=== PATIENT | female | born 1950 | race Caucasian/White ===

== ENCOUNTER 2018-05-16 10:23 | Emergency (ER) | payer OTHER ==
[~2018-05-16] VITALS: Ht 154.9 cm; Wt 71.2 kg
[2018-05-16 10:39] VITALS: BP 153/80
[2018-05-16] MEDS ORDERED: KETOROLAC TROMETH 60MG/2ML VIAL IM ONE (11:30)
== END 2018-05-16 12:02 | disposition home or self-care (01) ==
LOC: ER 10:23
DX: M47.896 Other spondylosis, lumbar region (principal); M54.16 Radiculopathy, lumbar region; I10 Essential (primary) hypertension
CPT/HCPCS: 72100; 96372; 99284; J1885

== ENCOUNTER 2019-08-04 14:48 | Emergency (ER) | payer OTHER ==
[~2019-08-04] VITALS: Ht 157.5 cm; Wt 68.0 kg
[2019-08-04 15:19] VITALS: BP 120/69
== END 2019-08-04 16:05 | disposition home or self-care (01) ==
LOC: ER 14:54
DX: S39.011A Strain of muscle, fascia and tendon of abdomen, initial encounter (principal); I10 Essential (primary) hypertension; F17.210 Nicotine dependence, cigarettes, uncomplicated; X58.XXXA Exposure to other specified factors, initial encounter; Y93.89 Activity, other specified; Y92.89 Other specified places as the place of occurrence of the external cause; Y99.8 Other external cause status

== ENCOUNTER 2022-08-08 06:02 | Emergency (ER) | payer OTHER ==
[~2022-08-08] VITALS: Ht 157.5 cm; Wt 56.0 kg
[2022-08-08 06:59] LABS: Basophils # (auto) 0 10 ^3/uL (0-0.2); Basophils % (auto) 0.7 % (0.0-2.0); Eosinophils # (auto) 0.2 10 ^3/uL (0-0.8); Eosinophils % (auto) 3.3 % (0.0-7.0); Hematocrit 39.3 % (36.0-46.0); Hemoglobin 13.2 g/dL (12.2-16.2); Lymphocytes # (auto) 1.4 10 ^3/uL (0.4-5.4); Lymphocytes % (auto) 21.6 % (10.0-50.0); Mean Corpuscular Hemoglobin 30.9 pg (28.0-32.0); Mean Corpuscular Hgb Conc. 33.7 g/dL (32.0-36.0); Mean Corpuscular Volume 91.7 fL (80.0-100.0); Monocytes # (auto) 0.5 10 ^3/uL (0-1.3); Neutrophils # (auto) 4.3 10 ^3/uL (1.6-8.6); Neutrophils % (auto) 66.4 % (37.0-80.0); Nucleated Red Blood Cells % 0.1 %; Red Blood Cells 4.28 10^6/uL (4.0-5.20); Red Cell Distribution Width 13.5 % (11.8-14.3); White Blood Cell 6.5 10^3/uL (4.4-10.8)
[2022-08-08 07:08] LABS: Albumin 3.8 g/dL (3.4-5.0); BUN/Creatinine Ratio 31.5; Calcium 9.3 mg/dL (8.5-10.1)
[2022-08-08 07:11] LABS: Bilirubin, Total 0.7 mg/dL (0.2-1.0); Total Protein 7.6 g/dL (6.4-8.2)
[2022-08-08] MEDS ORDERED: FAMOTIDINE 20 MG TAB PO ONE (07:15)
[2022-08-08] MEDS ORDERED: ALUM & MAG HYDROX-SIMETH LIQ(MAALOX) 30 ML PO ONE (07:15)
[2022-08-08] MEDS ORDERED: SODIUM CHLORIDE 0.9% 1,000 ML IV ONE (07:15)
[2022-08-08] MEDS ORDERED: IOHEXOL 350 MG/ML 100ML IJ ONE (08:04)
[2022-08-08 11:16] LABS: Urine Bacteria NONE SEEN /hpf (None Seen); Urine Blood Negative /uL (Negative); Urine WBC 1 /hpf (0 - 5)
[2022-08-08 12:37] LABS: Urine Specific Gravity > 1.050 (1.001-1.035)
[2022-08-08] MEDS ORDERED: ALUMCHW6 PO (12:57)
[2022-08-08] MEDS ORDERED: CLON0.5T PO (12:57)
[2022-08-08 13:17] VITALS: BP 122/51
== END 2022-08-08 13:18 | disposition home or self-care (01) ==
LOC: ER 06:02
DX: R10.13 Epigastric pain (principal); F41.8 Other specified anxiety disorders; K21.9 Gastro-esophageal reflux disease without esophagitis; I10 Essential (primary) hypertension; F17.210 Nicotine dependence, cigarettes, uncomplicated; Z90.89 Acquired absence of other organs
CPT/HCPCS: 36415; 71046; 74177; 80053; 81001; 83690; 83735; 85025; 93005; 96360; 96361; 99285; J7030; Q9967

== ENCOUNTER 2022-09-20 17:10 | Emergency (ER) | payer OTHER ==
[~2022-09-20] VITALS: Ht 154.9 cm; Wt 62.6 kg
[~2022-09-20 17:10] MED LIST: ALUMCHW6 PO; CLON0.5T PO
[2022-09-20] MEDS ORDERED: CEPH-510 PO (18:39)
[2022-09-20] MEDS ORDERED: TETANUS-DIPTH-ACEL PERTUSSIS 0.5ML SYR Tdap IM ONE (18:45)
[2022-09-20 18:46] VITALS: BP 146/83
== END 2022-09-20 18:50 | disposition home or self-care (01) ==
LOC: ER 17:10
DX: L03.012 Cellulitis of left finger (principal); K21.9 Gastro-esophageal reflux disease without esophagitis; I10 Essential (primary) hypertension; F17.200 Nicotine dependence, unspecified, uncomplicated; Z90.89 Acquired absence of other organs
CPT/HCPCS: 10060; 90471; 90715

== ENCOUNTER → 2022-10-15 | Outpatient (CLI) | payer OTHER ==
[~2022-10-15] MED LIST changes: +CEPH-510 PO
== END | disposition home or self-care (01) ==
LOC: LAB 11:56
PROVIDERS: ATTEND Nurse Practitioner Family
DX: E05.90 Thyrotoxicosis, unspecified without thyrotoxic crisis or storm (principal)
CPT/HCPCS: 36415; 84439; 84443

== ENCOUNTER 2022-11-19 09:09 | Emergency (ER) | payer OTHER ==
[~2022-11-19] VITALS: Ht 154.9 cm; Wt 61.2 kg
[2022-11-19] MEDS ORDERED: methylPREDNISolone SOD SUCC 125 MG/2 ML VL IM ONE (11:15)
[2022-11-19] MEDS ORDERED: ACETAMINOPHEN 500 MG TAB PO ONE (11:15)
[2022-11-19] MEDS ORDERED: MORPHINE SULFATE INJ 2 MG/ml SYRG IM ONE (12:00)
[2022-11-19] MEDS ORDERED: ONDANSETRON ODT 4 MG TAB PO ONE ×2 (12:00→13:00)
[2022-11-19 12:12] VITALS: BP 143/75
[2022-11-19] MEDS ORDERED: CYCL-837 PO (13:43)
[2022-11-19] MEDS ORDERED: LIDO5DIS21 TOP (13:43)
[2022-11-19] MEDS ORDERED: ONDA-144 PO (14:40)
== END 2022-11-19 13:44 | disposition home or self-care (01) ==
LOC: ER 09:09
DX: M54.31 Sciatica, right side (principal); I10 Essential (primary) hypertension; F17.210 Nicotine dependence, cigarettes, uncomplicated; Z90.89 Acquired absence of other organs
CPT/HCPCS: 72100; 96372; 99284; J2270; J2930; Q0162

== ENCOUNTER → 2022-11-21 | Outpatient (CLI) | payer OTHER ==
[~2022-11-21] MED LIST changes: +CYCL-837 PO; +LIDO5DIS21 TOP; +ONDA-144 PO
[2022-11-21 11:52] LABS: Basophils # (auto) 0 10 ^3/uL (0-0.2); Basophils % (auto) 0.4 % (0.0-2.0); Eosinophils # (auto) 0.2 10 ^3/uL (0-0.8); Hematocrit 38.9 % (36.0-46.0); Lymphocytes % (auto) 25.9 % (10.0-50.0); Mean Corpuscular Hemoglobin 31.1 pg (28.0-32.0); Mean Corpuscular Hgb Conc. 33.4 g/dL (32.0-36.0); Mean Corpuscular Volume 93.1 fL (80.0-100.0); Monocytes # (auto) 0.5 10 ^3/uL (0-1.3); Monocytes % (auto) 6.3 % (0.0-12.0); Neutrophils # (auto) 5.2 10 ^3/uL (1.6-8.6); Neutrophils % (auto) 65.4 % (37.0-80.0); Red Blood Cells 4.18 10^6/uL (4.0-5.20); White Blood Cell 7.9 10^3/uL (4.4-10.8)
[2022-11-21 12:39] LABS: Calcium 8.5 mg/dL (8.5-10.1)
[2022-11-21 12:42] LABS: BUN/Creatinine Ratio 38.4; Bilirubin, Total 0.6 mg/dL (0.2-1.0); Total Protein 7.4 g/dL (6.4-8.2)
[2022-11-21 13:34] LABS: Potassium 4.2 mmol/L (3.5-5.1)
== END | disposition home or self-care (01) ==
LOC: LAB 11:24
PROVIDERS: ATTEND Nurse Practitioner Family
DX: F41.9 Anxiety disorder, unspecified (principal); E03.9 Hypothyroidism, unspecified
CPT/HCPCS: 36415; 80053; 84439; 84443; 85025

== ENCOUNTER → 2023-01-10 | Outpatient (CLI) | payer OTHER ==
[2023-01-10 10:57] LABS: Basophils # (auto) 0 10 ^3/uL (0-0.2); Basophils % (auto) 0.8 % (0.0-2.0); Eosinophils # (auto) 0.2 10 ^3/uL (0-0.8); Hematocrit 40.2 % (36.0-46.0); Hemoglobin 13.6 g/dL (12.2-16.2); Lymphocytes # (auto) 1.6 10 ^3/uL (0.4-5.4); Lymphocytes % (auto) 28.1 % (10.0-50.0); Mean Corpuscular Hemoglobin 31.1 pg (28.0-32.0); Mean Corpuscular Hgb Conc. 33.7 g/dL (32.0-36.0); Mean Corpuscular Volume 92.3 fL (80.0-100.0); Monocytes # (auto) 0.4 10 ^3/uL (0-1.3); Monocytes % (auto) 6.5 % (0.0-12.0); Neutrophils # (auto) 3.4 10 ^3/uL (1.6-8.6); Neutrophils % (auto) 61.6 % (37.0-80.0); Red Blood Cells 4.36 10^6/uL (4.0-5.20); Red Cell Distribution Width 13.6 % (11.8-14.3); White Blood Cell 5.6 10^3/uL (4.4-10.8)
[2023-01-10 11:38] LABS: Potassium 3.7 mmol/L (3.5-5.1)
[2023-01-10 12:15] LABS: Albumin 3.7 g/dL (3.4-5.0); BUN/Creatinine Ratio 27.6 (10.0-20.0); Bilirubin, Total 0.9 mg/dL (0.2-1.0); CRP High Sensitivity 0.03 mg/dL (< 0.3); Calcium 8.9 mg/dL (8.5-10.1); Total Protein 7.4 g/dL (6.4-8.2)
== END | disposition home or self-care (01) ==
LOC: LAB 10:32
PROVIDERS: ATTEND Internal Medicine Rheumatology
DX: M79.7 Fibromyalgia (principal); M06.9 Rheumatoid arthritis, unspecified
CPT/HCPCS: 36415; 80053; 85025; 85652; 86141; 86200; 86431

== ENCOUNTER → 2023-03-18 | Outpatient (CLI) | payer OTHER ==
[~2023-03-18] MED LIST changes: +CLON-1003 PO; -CLON0.5T PO
[2023-03-18 14:14] LABS: Basophils # (auto) 0 10 ^3/uL (0-0.2); Basophils % (auto) 0.7 % (0.0-2.0); Eosinophils # (auto) 0.2 10 ^3/uL (0-0.8); Eosinophils % (auto) 3.1 % (0.0-7.0); Hematocrit 41.6 % (36.0-46.0); Hemoglobin 13.9 g/dL (12.2-16.2); Lymphocytes # (auto) 1.1 10 ^3/uL (0.4-5.4); Lymphocytes % (auto) 17.7 % (10.0-50.0); Mean Corpuscular Hemoglobin 31.7 pg (28.0-32.0); Mean Corpuscular Hgb Conc. 33.4 g/dL (32.0-36.0); Mean Corpuscular Volume 94.9 fL (80.0-100.0); Monocytes # (auto) 0.5 10 ^3/uL (0-1.3); Monocytes % (auto) 7.8 % (0.0-12.0); Neutrophils # (auto) 4.5 10 ^3/uL (1.6-8.6); Neutrophils % (auto) 70.7 % (37.0-80.0); Nucleated Red Blood Cells % 0.1 %; Red Blood Cells 4.39 10^6/uL (4.0-5.20); Red Cell Distribution Width 13.4 % (11.8-14.3); White Blood Cell 6.4 10^3/uL (4.4-10.8)
[2023-03-18 14:46] LABS: Urine Bacteria NONE SEEN /hpf (None Seen); Urine Blood Negative /uL (Negative); Urine Mucus FEW (None Seen); Urine Specific Gravity 1.026 (1.001-1.035); Urine WBC 2 /hpf (0 - 5)
[2023-03-18 14:47] LABS: Albumin 3.9 g/dL (3.4-5.0); BUN/Creatinine Ratio 25.3 (10.0-20.0); Calcium 8.7 mg/dL (8.5-10.1)
[2023-03-18 14:51] LABS: Potassium 4.4 mmol/L (3.5-5.1); Total Protein 7.3 g/dL (6.4-8.2)
== END | disposition home or self-care (01) ==
LOC: LAB 13:55
DX: R10.13 Epigastric pain (principal); R11.0 Nausea
CPT/HCPCS: 36415; 80053; 81001; 82150; 83690; 85025

== ENCOUNTER 2023-07-25 16:45 | Emergency (ER) | payer OTHER ==
[~2023-07-25] VITALS: Ht 154.9 cm; Wt 56.1 kg
[2023-07-25 18:09] LABS: Urine Bacteria NONE SEEN /hpf (None Seen); Urine Blood Negative /uL (Negative); Urine Clarity Clear (Clear); Urine Color Yellow (Yellow); Urine Mucus FEW (None Seen); Urine Protein, UAD Negative (Negative); Urine Specific Gravity 1.019 (1.001-1.035); Urine Urobilinogen Normal (Negative); Urine WBC 1 /hpf (0 - 5)
[2023-07-25] MEDS ORDERED: ACE3T PO (18:36)
[2023-07-25 18:44] VITALS: BP 109/71; PULSE 65; RESP 18; TEMP 98.5; O2SAT 97
== END 2023-07-25 18:46 | disposition home or self-care (01) ==
LOC: ER 16:45
DX: K40.90 Unilateral inguinal hernia, without obstruction or gangrene, not specified as recurrent (principal); K21.9 Gastro-esophageal reflux disease without esophagitis; I10 Essential (primary) hypertension; F17.210 Nicotine dependence, cigarettes, uncomplicated
CPT/HCPCS: 81001

== ENCOUNTER → 2023-09-19 | Outpatient (CLI) | payer OTHER ==
[~2023-09-19] MED LIST changes: +ACE3T PO
== END | disposition home or self-care (01) ==
LOC: XYW 13:08
PROVIDERS: ATTEND Student in an Organized Health Care Education/Training Program
DX: Z01.810 Encounter for preprocedural cardiovascular examination (principal); I11.9 Hypertensive heart disease without heart failure
CPT/HCPCS: 93306

== ENCOUNTER → 2023-10-23 | Outpatient (CLI) | payer OTHER ==
[2023-10-23 11:55] LABS: Urine Epithelial Cast None Seen /hpf (<5)
[2023-10-23 12:43] LABS: Erythrocyte Sedimentation Rate 2 mm/hr (0-20)
[2023-10-23 12:45] LABS: Urine Bacteria NONE SEEN /hpf (None Seen); Urine Blood Negative /uL (Negative); Urine Clarity Clear (Clear); Urine Color Yellow (Yellow); Urine Mucus FEW (None Seen); Urine Protein, UAD TRACE (Negative); Urine Specific Gravity 1.034 (1.001-1.035); Urine Urobilinogen Normal (Negative); Urine WBC 2 /hpf (0 - 5)
[2023-10-23 12:49] LABS: Triglycerides 65 mg/dL (< 150)
[2023-10-23 12:50] LABS: Cholesterol 195 mg/dL (< 200); LDL Cholesterol 102 mg/dL (< 100)
[2023-10-23 12:51] LABS: HDL Cholesterol 74 mg/dL (40-59)
== END | disposition home or self-care (01) ==
LOC: LAB 11:45
PROVIDERS: ATTEND Internal Medicine
DX: I10 Essential (primary) hypertension (principal); E78.5 Hyperlipidemia, unspecified; F41.9 Anxiety disorder, unspecified; M79.7 Fibromyalgia
CPT/HCPCS: 36415; 80061; 81001; 82306; 82607; 84443; 85652

== ENCOUNTER → 2023-10-23 | Outpatient (CLI) | payer OTHER ==
[~2023-10-23] VITALS: Ht 157.5 cm; Wt 55.3 kg
[~2023-10-23] MED LIST changes: +ATROPINE SULF 0.5 MG/5ML SYR ONE; +DOBUTamine 1000MCG/ML 100 ML IV ONE; +DOBUTamine 1000MCG/ML 250 ML IV ONE
[2023-10-23 11:21] VITALS: BP 117/58; PULSE 64
== END | disposition home or self-care (01) ==
LOC: XYW 09:35
PROVIDERS: ATTEND Student in an Organized Health Care Education/Training Program
DX: Z01.810 Encounter for preprocedural cardiovascular examination (principal); R68.89 Other general symptoms and signs; E78.5 Hyperlipidemia, unspecified; K40.90 Unilateral inguinal hernia, without obstruction or gangrene, not specified as recurrent; K57.90 Diverticulosis of intestine, part unspecified, without perforation or abscess without bleeding; F17.200 Nicotine dependence, unspecified, uncomplicated
CPT/HCPCS: 93017; 93350; J1250; J0461

== ENCOUNTER 2023-11-08 12:55 | Inpatient (IN) | payer OTHER ==
[~2023-11-08] VITALS: Ht 160 cm; Wt 64.5 kg
[~2023-11-08 12:55] MED LIST changes: -ATROPINE SULF 0.5 MG/5ML SYR ONE; -DOBUTamine 1000MCG/ML 100 ML IV ONE; -DOBUTamine 1000MCG/ML 250 ML IV ONE
[2023-11-08 13:31] VITALS: PULSE 57; RESP 16; O2SAT 97
[2023-11-08] MEDS: MORPHINE SULFATE 4 MG/ML SYR/VIAL IV ONE (13:39)
[2023-11-08] MEDS: ONDANSETRON HCL 4 MG/2 ML VIAL IV ONE (13:39)
[2023-11-08 13:52] LABS: Basophils # (auto) 0 10 ^3/uL (0-0.2); Basophils % (auto) 0.4 % (0.0-2.0); Eosinophils # (auto) 0.2 10 ^3/uL (0-0.8); Eosinophils % (auto) 2.1 % (0.0-7.0); Hematocrit 37.4 % (36.0-46.0); Hemoglobin 12.7 g/dL (12.2-16.2); Lymphocytes # (auto) 0.8 10 ^3/uL (0.4-5.4); Lymphocytes % (auto) 9.6 % (10.0-50.0); Mean Corpuscular Hemoglobin 32.5 pg (28.0-32.0); Mean Corpuscular Volume 95.6 fL (80.0-100.0); Monocytes # (auto) 0.6 10 ^3/uL (0-1.3); Monocytes % (auto) 7.4 % (0.0-12.0); Neutrophils % (auto) 80.5 % (37.0-80.0); Nucleated Red Blood Cells % 0.1 %; Red Blood Cells 3.91 10^6/uL (4.0-5.20); Red Cell Distribution Width 13.5 % (11.8-14.3); White Blood Cell 8.7 10^3/uL (4.4-10.8)
[2023-11-08 14:02] LABS: Anion Gap 4 (5-15); Carbon Dioxide 28 mmol/L (20-30); Chloride 107 mmol/L (98-107); Sodium 139 mmol/L (136-145)
[2023-11-08 14:03] LABS: Calcium 9.4 mg/dL (8.5-10.1)
[2023-11-08 14:08] LABS: BUN/Creatinine Ratio 32.4 (10.0-20.0); Blood Urea Nitrogen 22 mg/dL (9-23); Glucose 109 mg/dL (74-106); INR 0.98 (0.9-1.15); Prothrombin Time 10.3 sec (9.3-11.8)
[2023-11-08] MEDS: IOHEXOL 300 MG/ML 100ML BOTTLE IJ ONE (14:40)
[2023-11-08 15:39] LABS: Urine Bacteria NONE SEEN /hpf (None Seen); Urine Blood Negative /uL (Negative); Urine Clarity HAZY (Clear); Urine Color Yellow (Yellow); Urine Mucus FEW (None Seen); Urine Protein, UAD Negative (Negative); Urine Urobilinogen Normal (Negative); Urine WBC 4 /hpf (0 - 5)
[2023-11-08] MEDS ORDERED: ACETAMINOPHEN 325 MG TAB PO PRN (18:45)
[2023-11-08] MEDS ORDERED: MORPHINE SULFATE 4 MG/ML SYR/VIAL IV PRN (18:45)
[2023-11-08] MEDS: PANTOPRAZOLE 40 MG/10 ML VIAL INJ IV ONE (18:58)
[2023-11-08] MEDS: SODIUM CHLORIDE 0.9% 1,000 ML IV SCH (18:59)
[2023-11-08] MEDS: HYDROcodone-ACET 5/325MG TAB PO PRN (19:06)
[2023-11-08 19:36] VITALS: PULSE 64; RESP 11; O2SAT 95
[2023-11-08] MEDS: clonazePAM 0.5 MG TAB PO SCH (21:48)
[2023-11-08] MEDS: MAGNESIUM CARBONATE PO SCH (21:48)
[2023-11-08] MEDS: ALUMINUM HYDROXIDE PO SCH (21:48)
[2023-11-08] MEDS: CYCLOBENZAPRINE HCL 10 MG TAB PO SCH (21:49)
[2023-11-09] VITALS (8 sets, daily range): BP systolic 107–127; BP diastolic 54–75; PULSE 51–61; RESP 16–20; TEMP 97.3–98.6; O2SAT 93–98
[2023-11-09] MEDS ORDERED: DULO60CA41 PO (02:30)
[2023-11-09] MEDS ORDERED: LOSA100T58 PO (02:32)
[2023-11-09 06:51] LABS: Basophils # (auto) 0 10 ^3/uL (0-0.2); Basophils % (auto) 0.6 % (0.0-2.0); Eosinophils # (auto) 0.2 10 ^3/uL (0-0.8); Eosinophils % (auto) 4.1 % (0.0-7.0); Hemoglobin 11.8 g/dL (12.2-16.2); Lymphocytes # (auto) 1.2 10 ^3/uL (0.4-5.4); Lymphocytes % (auto) 21.3 % (10.0-50.0); Mean Corpuscular Hemoglobin 32.6 pg (28.0-32.0); Mean Corpuscular Hgb Conc. 33.9 g/dL (32.0-36.0); Mean Corpuscular Volume 96.2 fL (80.0-100.0); Monocytes # (auto) 0.7 10 ^3/uL (0-1.3); Neutrophils # (auto) 3.5 10 ^3/uL (1.6-8.6); Nucleated Red Blood Cells % 0.1 %; Red Blood Cells 3.63 10^6/uL (4.0-5.20); Red Cell Distribution Width 13.2 % (11.8-14.3); White Blood Cell 5.7 10^3/uL (4.4-10.8)
[2023-11-09 06:55] LABS: Alanine Aminotransferase 19 U/L (7-40); Albumin 3.9 g/dL (3.2-4.8); Alkaline Phosphatase 62 U/L (46-116); Anion Gap 6 (5-15); Aspartate Aminotransferase 18 U/L (13-40); BUN/Creatinine Ratio 18.3 (10.0-20.0); Bilirubin, Total 0.9 mg/dL (0.2-1.0); Blood Urea Nitrogen 15 mg/dL (9-23); Calcium 8.5 mg/dL (8.7-10.4); Carbon Dioxide 25 mmol/L (20-30); Chloride 110 mmol/L (98-107); Glucose 100 mg/dL (74-106); Potassium 4.3 mmol/L (3.5-5.1); Sodium 141 mmol/L (136-145)
[2023-11-09] MEDS: PANTOPRAZOLE 40 MG/10 ML VIAL INJ IV SCH (09:23)
[2023-11-09] MEDS: HYDROcodone-ACET 5/325MG TAB PO PRN (16:04)
[2023-11-09] MEDS: DULoxetine HCL 30 MG CAP PO ONE (16:05)
[2023-11-09] MEDS: NICOTINE 14 MG/24HR TOPICAL PATCH TD ONE (22:19)
[2023-11-09] MEDS: DOCUSATE SOD 100 MG CAP PO SCH (22:19)
[2023-11-10] VITALS (7 sets, daily range): BP systolic 104–121; BP diastolic 52–79; PULSE 47–59; RESP 19–22; TEMP 97.7–98.2; O2SAT 95–98
[2023-11-10 06:56] LABS: Basophils # (auto) 0 10 ^3/uL (0-0.2); Basophils % (auto) 0.8 % (0.0-2.0); Eosinophils # (auto) 0.2 10 ^3/uL (0-0.8); Eosinophils % (auto) 4.6 % (0.0-7.0); Hematocrit 34.4 % (36.0-46.0); Hemoglobin 11.5 g/dL (12.2-16.2); Lymphocytes # (auto) 1.7 10 ^3/uL (0.4-5.4); Mean Corpuscular Hemoglobin 32.3 pg (28.0-32.0); Mean Corpuscular Hgb Conc. 33.4 g/dL (32.0-36.0); Mean Corpuscular Volume 96.6 fL (80.0-100.0); Monocytes # (auto) 0.8 10 ^3/uL (0-1.3); Neutrophils # (auto) 1.8 10 ^3/uL (1.6-8.6); Neutrophils % (auto) 39.3 % (37.0-80.0); Nucleated Red Blood Cells % 0.1 %; Red Blood Cells 3.56 10^6/uL (4.0-5.20); Red Cell Distribution Width 13.1 % (11.8-14.3); White Blood Cell 4.5 10^3/uL (4.4-10.8)
[2023-11-10 06:57] LABS: Calcium 8.5 mg/dL (8.7-10.4); Chloride 110 mmol/L (98-107); Potassium 4.3 mmol/L (3.5-5.1); Sodium 142 mmol/L (136-145)
[2023-11-10 06:58] LABS: Anion Gap 3 (5-15); Carbon Dioxide 29 mmol/L (20-30)
[2023-11-10 07:01] LABS: INR 0.96 (0.9-1.15); Partial Thromboplastin Time 26.2 SEC (24.5-34.5); Prothrombin Time 10.1 sec (9.3-11.8)
[2023-11-10 07:04] LABS: BUN/Creatinine Ratio 32.9 (10.0-20.0); Blood Urea Nitrogen 24 mg/dL (9-23)
[2023-11-10 07:08] LABS: Glucose 96 mg/dL (74-106)
[2023-11-10 07:21] LABS: Monocytes % (auto) 18.3 % (0.0-12.0)
[2023-11-10] MEDS: LOSARTAN POTASSIUM 50 MG TAB PO SCH (11:00)
[2023-11-10] MEDS: DULoxetine HCL 30 MG CAP PO SCH (11:00)
[2023-11-10] MEDS: NICOTINE 14 MG/24HR TOPICAL PATCH TD SCH (14:54)
[2023-11-10] MEDS: ONDANSETRON HCL 4 MG/2 ML VIAL IV PRN (15:11)
[2023-11-10 21:11] LABS: Amphetamine Screen, Urine Neg (NEGATIVE); Barbiturate Scree,Urine Neg (NEGATIVE); Benzodiazephine Screen, Urine Neg (NEGATIVE); Cocaine Screen, Urine Neg (NEGATIVE)
[2023-11-10 21:12] LABS: Cannabinoid Screen, Urine Neg (NEGATIVE); Opiate Scree,Urine Neg (NEGATIVE); Phencyclidine Screen, Urine Neg (NEGATIVE)
[2023-11-11] VITALS (7 sets, daily range): BP systolic 107–135; BP diastolic 56–70; PULSE 59–89; RESP 17–20; TEMP 97.6–99.8; O2SAT 93–100
[2023-11-11] MEDS ORDERED: MIDAZOLAM HCL 2MG/2ML 2ml VIAL (1mg/ml) ONE (08:58)
[2023-11-11] MEDS ORDERED: KETOROLAC TROMETH 30 MG/ML 1ML VIAL ONE (08:58)
[2023-11-11] MEDS ORDERED: LIDOCAINE HCL 100 MG/5ML (2%) SYRG INJ IV ONE (08:58)
[2023-11-11] MEDS ORDERED: fentaNYL CITRATE 100 MCG/2 ML VL ONE (08:58)
[2023-11-11] MEDS ORDERED: ePHEDrine SULFATE 50 MG/ML AMP ONE (08:58)
[2023-11-11] MEDS ORDERED: GLYCOPYRROLATE 0.2 MG/ML 1ML VIAL ONE (08:58)
[2023-11-11] MEDS ORDERED: DexAMETHasone SOD PHOS 10MG/1ML VIAL INJ ONE (08:58)
[2023-11-11] MEDS ORDERED: PROPOFOL 10 MG/ML 20 ML IV ONE (08:58)
[2023-11-11] MEDS ORDERED: KETAMINE 50mg/ML 1ml syringe ONE (08:58)
[2023-11-11] MEDS ORDERED: HYDROmorphone HCL 2 MG/ML VL/or syr ONE (08:58)
[2023-11-11] MEDS ORDERED: MEPERIDINE HCL (50 MG/ML) 1 ML VIAL ONE (09:04)
[2023-11-11] MEDS: BUPIVACAINE 0.25% INJ 50ML VIAL ONE (10:25)
[2023-11-11] MEDS: LIDOCAINE W/ EPINEPHRINE 1% 20ML VIAL ONE (10:25)
[2023-11-11] MEDS ORDERED: ONDANSETRON HCL 4 MG/2 ML VIAL IV PRN (11:15)
[2023-11-11] MEDS: HYDROmorphone HCL 2 MG/ML VL/or syr IV PRN (11:33)
[2023-11-11] MEDS: ceFAZolin 2 GM/D5W100ml 100 ML IV ONE (17:50)
[2023-11-12 05:00] VITALS: BP 108/57; PULSE 51; RESP 18; TEMP 97.9; O2SAT 94
[2023-11-12 05:21] LABS: Basophils # (auto) 0 10 ^3/uL (0-0.2); Basophils % (auto) 0.2 % (0.0-2.0); Eosinophils # (auto) 0 10 ^3/uL (0-0.8); Eosinophils % (auto) 0.1 % (0.0-7.0); Hematocrit 32.1 % (36.0-46.0); Hemoglobin 10.6 g/dL (12.2-16.2); Lymphocytes # (auto) 1.5 10 ^3/uL (0.4-5.4); Lymphocytes % (auto) 13.9 % (10.0-50.0); Mean Corpuscular Hemoglobin 31.7 pg (28.0-32.0); Mean Corpuscular Volume 95.8 fL (80.0-100.0); Monocytes # (auto) 0.7 10 ^3/uL (0-1.3); Monocytes % (auto) 6.3 % (0.0-12.0); Neutrophils # (auto) 8.9 10 ^3/uL (1.6-8.6); Neutrophils % (auto) 79.5 % (37.0-80.0); Red Blood Cells 3.35 10^6/uL (4.0-5.20); Red Cell Distribution Width 13.2 % (11.8-14.3); White Blood Cell 11.2 10^3/uL (4.4-10.8)
[2023-11-12 05:33] LABS: Calcium 8.7 mg/dL (8.5-10.1); Chloride 112 mmol/L (98-107); Potassium 3.9 mmol/L (3.5-5.1); Sodium 142 mmol/L (136-145)
[2023-11-12 05:34] LABS: Anion Gap 6 (5-15); Carbon Dioxide 24 mmol/L (20-30)
[2023-11-12 05:39] LABS: BUN/Creatinine Ratio 14.8 (10.0-20.0); Glucose 90 mg/dL (74-106)
[2023-11-12 05:42] LABS: Blood Urea Nitrogen 9 mg/dL (9-23)
[2023-11-12 08:00] VITALS: BP 122/65; PULSE 51; RESP 18; TEMP 97.5; O2SAT 98
[2023-11-12 09:00] VITALS: BP 122/65; PULSE 51; RESP 18; TEMP 97.5; O2SAT 98
[2023-11-12] MEDS: PANTOPRAZOLE 40 MG TAB PO SCH (09:12)
[2023-11-12] MEDS ORDERED: NICO14DI9 TD (11:41)
[2023-11-12 12:38] VITALS: BP 135/70; PULSE 51; RESP 17; TEMP 97.9; O2SAT 95
[2023-11-12 13:01] VITALS: BP 122/65; PULSE 64; RESP 18; TEMP 98; O2SAT 98
== END 2023-11-12 15:00 | disposition home or self-care (01) | DRG 352 ==
LOC: ER 12:55 → EDUNIT# 12:55 → EDBD 12:55 → OVERFLOW 18:35 → WEST WING 23:26
PROVIDERS: ADMIT Internal Medicine; ATTEND Internal Medicine
PROC: 0YQ60ZZ Repair Left Inguinal Region, Open Approach (ICD-10-PCS; principal; 2023-11-11 09:58)
DX: K40.30 Unilateral inguinal hernia, with obstruction, without gangrene, not specified as recurrent (principal); K21.9 Gastro-esophageal reflux disease without esophagitis; I10 Essential (primary) hypertension; M79.7 Fibromyalgia; F17.210 Nicotine dependence, cigarettes, uncomplicated; Z80.0 Family history of malignant neoplasm of digestive organs; Z80.49 Family history of malignant neoplasm of other genital organs
CPT/HCPCS: 36415; 71045; 74177; 80048; 80053; 80307; 81001; 82306; 82607; 83036; 83735; 84443; 85025; 85610; 85730; 87040; 96374; 96375; 97163; C9113; G0378; J1100; J1885; J2250; J2405; J2704; J3490

== ENCOUNTER → 2023-12-10 | Outpatient (CLI) | payer OTHER ==
[~2023-12-10] MED LIST changes: -ALUMCHW6 PO; -CEPH-510 PO; +DULO60CA41 PO; +LOSA100T58 PO; +NICO14DI9 TD
[2023-12-10 09:40] LABS: Basophils # (auto) 0 10 ^3/uL (0-0.2); Basophils % (auto) 0.5 % (0.0-2.0); Eosinophils # (auto) 0.3 10 ^3/uL (0-0.8); Eosinophils % (auto) 5.4 % (0.0-7.0); Hematocrit 39.9 % (36.0-46.0); Hemoglobin 13.1 g/dL (12.2-16.2); Lymphocytes # (auto) 1.5 10 ^3/uL (0.4-5.4); Lymphocytes % (auto) 26.1 % (10.0-50.0); Mean Corpuscular Hemoglobin 31.5 pg (28.0-32.0); Mean Corpuscular Hgb Conc. 32.7 g/dL (32.0-36.0); Mean Corpuscular Volume 96.3 fL (80.0-100.0); Monocytes # (auto) 0.4 10 ^3/uL (0-1.3); Monocytes % (auto) 7.3 % (0.0-12.0); Neutrophils # (auto) 3.5 10 ^3/uL (1.6-8.6); Neutrophils % (auto) 60.7 % (37.0-80.0); Nucleated Red Blood Cells % 0.1 %; Red Blood Cells 4.15 10^6/uL (4.0-5.20); Red Cell Distribution Width 13.7 % (11.8-14.3); White Blood Cell 5.7 10^3/uL (4.4-10.8)
== END | disposition home or self-care (01) ==
LOC: LAB 09:20
PROVIDERS: ATTEND Internal Medicine
DX: D64.9 Anemia, unspecified (principal)
CPT/HCPCS: 36415; 85025

== ENCOUNTER 2024-01-17 11:03 | Day surgery (SDC) | payer OTHER ==
[2024-01-14 14:50] LABS: Basophils # (auto) 0 10 ^3/uL (0-0.2); Basophils % (auto) 0.3 % (0.0-2.0); Eosinophils # (auto) 0.2 10 ^3/uL (0-0.8); Eosinophils % (auto) 2.1 % (0.0-7.0); Hemoglobin 13.4 g/dL (12.2-16.2); Lymphocytes # (auto) 1.5 10 ^3/uL (0.4-5.4); Lymphocytes % (auto) 20.6 % (10.0-50.0); Mean Corpuscular Hemoglobin 31.6 pg (28.0-32.0); Mean Corpuscular Hgb Conc. 33.4 g/dL (32.0-36.0); Mean Corpuscular Volume 94.7 fL (80.0-100.0); Monocytes # (auto) 0.5 10 ^3/uL (0-1.3); Monocytes % (auto) 7.3 % (0.0-12.0); Neutrophils # (auto) 5.2 10 ^3/uL (1.6-8.6); Neutrophils % (auto) 69.7 % (37.0-80.0); Nucleated Red Blood Cells % 0.1 %; Red Blood Cells 4.23 10^6/uL (4.0-5.20); Red Cell Distribution Width 13.2 % (11.8-14.3); White Blood Cell 7.4 10^3/uL (4.4-10.8)
[2024-01-14 14:57] LABS: INR 1.01 (0.9-1.15); Partial Thromboplastin Time 26.1 SEC (24.5-34.5); Prothrombin Time 10.6 sec (9.3-11.8)
[2024-01-14 15:27] LABS: Alanine Aminotransferase 19 U/L (7-40); Albumin 4.5 g/dL (3.2-4.8); Alkaline Phosphatase 75 U/L (46-116); Anion Gap 2 (5-15); Aspartate Aminotransferase 20 U/L (13-40); BUN/Creatinine Ratio 31.5 (10.0-20.0); Bilirubin, Total 0.9 mg/dL (0.2-1.0); Blood Urea Nitrogen 23 mg/dL (9-23); Calcium 9.8 mg/dL (8.7-10.4); Carbon Dioxide 29 mmol/L (20-30); Chloride 109 mmol/L (98-107); Glucose 100 mg/dL (74-106); Potassium 4.2 mmol/L (3.5-5.1); Sodium 140 mmol/L (136-145); Total Protein 7.1 g/dL (5.7-8.2)
[~2024-01-17] VITALS: Ht 154.9 cm; Wt 56.7 kg
[~2024-01-17 11:03] MED LIST changes: +BACL5TAB2 PO; -CLON-1003 PO; -CYCL-837 PO; +DULO1CAP5 PO; -DULO60CA41 PO; +FAMO-68 PO; -LIDO5DIS21 TOP; +LORA-1121 PO; +LOSA-535 PO; -LOSA100T58 PO
[2024-01-17] MEDS ORDERED: SODIUM CHLORIDE LOCK 10 ML ONE (11:30)
[2024-01-17 13:44] VITALS: PULSE 63; RESP 18; O2SAT 95
[2024-01-17] MEDS: MIDAZOLAM HCL 5 MG/ML-1ML VIAL ONE (13:52)
[2024-01-17] MEDS: diphenhdrAMINE HCL 50 MG/1 ML VL ONE (13:52)
[2024-01-17] MEDS: fentaNYL CITRATE 100 MCG/2 ML VL ONE (13:52)
[2024-01-17 14:22] VITALS: TEMP 98.7; O2SAT 100
[2024-01-17 15:07] VITALS: BP 133/66; PULSE 52; RESP 19; O2SAT 94
== END 2024-01-17 15:15 | disposition home or self-care (01) ==
LOC: GI 11:03
PROVIDERS: ATTEND Internal Medicine Gastroenterology
DX: K59.00 Constipation, unspecified (principal); K63.5 Polyp of colon; K57.30 Diverticulosis of large intestine without perforation or abscess without bleeding; K63.89 Other specified diseases of intestine; K21.9 Gastro-esophageal reflux disease without esophagitis; M79.7 Fibromyalgia; F41.8 Other specified anxiety disorders; F17.210 Nicotine dependence, cigarettes, uncomplicated; Z79.899 Other long term (current) drug therapy; Z90.89 Acquired absence of other organs; Z98.890 Other specified postprocedural states
CPT/HCPCS: 36415; 45380; 45385; 80053; 85025; 85610; 85730; 88305; J1200; J2250; J3010; J7030; 99152; 99153

== ENCOUNTER → 2024-02-25 | Outpatient (CLI) | payer OTHER ==
[2024-02-25 11:34] LABS: Triglycerides 45 mg/dL (< 150)
[2024-02-25 11:35] LABS: LDL Cholesterol 107 mg/dL (< 100)
[2024-02-25 11:36] LABS: Cholesterol 193 mg/dL (< 200); HDL Cholesterol 69 mg/dL (40-59)
== END | disposition home or self-care (01) ==
LOC: LAB 10:32
PROVIDERS: ATTEND Internal Medicine
DX: E78.5 Hyperlipidemia, unspecified (principal)
CPT/HCPCS: 36415; 80061

== ENCOUNTER 2024-04-28 11:28 | Emergency (ER) | payer OTHER ==
[~2024-04-28] VITALS: Ht 154.9 cm; Wt 63.2 kg
[2024-04-28] MEDS: HYDROmorphone HCL 2 MG/ML VL/or syr IV ONE ×2 (12:11)
[2024-04-28 12:27] VITALS: PULSE 56; RESP 16; TEMP 97.6; O2SAT 95
[2024-04-28] MEDS ORDERED: IBU600T PO (12:35)
[2024-04-28 12:41] VITALS: BP 152/81; PULSE 54; RESP 16
== END 2024-04-28 13:14 | disposition home or self-care (01) ==
LOC: ER 11:28
DX: S43.004A Unspecified dislocation of right shoulder joint, initial encounter (principal); K21.9 Gastro-esophageal reflux disease without esophagitis; I10 Essential (primary) hypertension; F17.210 Nicotine dependence, cigarettes, uncomplicated; Z79.1 Long term (current) use of non-steroidal anti-inflammatories (NSAID); Z79.899 Other long term (current) drug therapy; Z90.89 Acquired absence of other organs; W18.09XA Striking against other object with subsequent fall, initial encounter; Y93.89 Activity, other specified; Y92.89 Other specified places as the place of occurrence of the external cause; Y99.8 Other external cause status
CPT/HCPCS: 23650; 73020; 73030; 96374; 99284; J1170

== ENCOUNTER → 2024-10-14 | Outpatient (CLI) | payer OTHER ==
[~2024-10-14] MED LIST changes: +IBU600T PO
[2024-10-14 12:45] LABS: Triglycerides 69 mg/dL (< 150)
[2024-10-14 12:46] LABS: LDL Cholesterol 107 mg/dL (< 100)
[2024-10-14 12:47] LABS: Cholesterol 187 mg/dL (< 200); HDL Cholesterol 68 mg/dL (40-59)
== END | disposition home or self-care (01) ==
LOC: LAB 11:40
PROVIDERS: ATTEND Internal Medicine
DX: Z12.11 Encounter for screening for malignant neoplasm of colon (principal); I10 Essential (primary) hypertension; R10.9 Unspecified abdominal pain; Z79.899 Other long term (current) drug therapy
CPT/HCPCS: 36415; 80061; 82270; 83036; 84443

== ENCOUNTER 2024-12-03 10:47 | Emergency (ER) | payer OTHER ==
[~2024-12-03] VITALS: Ht 154.9 cm; Wt 59.0 kg
--- NOTE | 2024-12-03 11:13 | ED.PDOC ---
History of Present Illness HPI Comments 74 y/o F, BIBA with PMHX of HTN, depression, and anxiety presents to the ED for CC of tremors. EMS states, patient is coming from home where she called emergency medical personal due to tremors [id number]. Patient states, she has been experiencing non-stop tremors, complete body aches, and weakness for over x1m onth. Patient comments on, tremors causing her to wake up during the night. Patient relays, that she recently ran out of her Lorazepam x2days ago; believes new onset symptoms can be in association. Patient denies chest pain, palpitations, headache, nausea, or vomiting. No other associated symptoms, modifiers, recent injuries or sick contacts at this time. Time Seen by MD: 11:00 Primary Care Provider: wes Reviewed Notes: Nurses Notes, Pharmacy Salesperson Notes, Medications, Allergies Allergies: Coded Allergies: NO KNOWN ALLERGIES (Unverified , 05/16/18) Home Meds Active Scripts Ibuprofen Micronized (MOTRIN TABLET) 600 Mg Tb, 600 MG PO TID PRN for 3 Days, #9 TAB *Black box warning-NSAIDS can increase risk of MS & hypertension, GI irritation, ulceration, bleed, perferation. Do not use post cardiac surgery. Use short duration/lowest effective dose. Prov:WESLEY JJ MD 04/28/24 Nicotine (Nicotine) 14 Mg/24 Hr Dis, 1 PATCH TD DAILY for 30 Days, #30 DIS Prov:LEONIDAS FRANZ RESIDENT 11/12/23 Acetaminophen W/ Codeine (Tylenol W/Cod #3) 1 Tab Tb, 1 TAB PO Q6HP PRN, #20 TAB Prov:LAISHA TREVIZO PAC 07/25/23 Ondansetron (Zofran) 4 Mg Tab, 1 TAB PO Q6HR PRN, #12 TAB 0 Refills Prov:HEMA CHANDRA DONOR SUPPORT TECHNICIAN 11/19/22 Reported Medications Baclofen (Baclofen) 5 Mg Tab, 5 MG PO PRN, TAB 01/14/24 Lorazepam (ATIVAN TABLET) 0.5 Mg Tb, 0.5 MG PO PRN, TAB 01/14/24 Famotidine (Gnp Acid Manufacturing Engineer Paint Maximum) 20 Mg Tab, 40 MG PO DAILY, TAB 01/14/24 Duloxetine HCl (Duloxetine HCl) 30 Mg Cap, 30 MG PO UD, CAP Take 30 mg qam, 60 mg qhs 01/14/24 Losartan Potassium (Losartan Potassium) 100 Mg Tab, 1 TAB PO DAILY, #30 TAB 5 Refills 11/09/23 Information Source: Patient, Emergency Med Personnel Mode of Arrival: EMS Severity: Moderate Timing: Months Duration: Since onset Prehospital treatment: None Past Medical History PAST MEDICAL HISTORY: Anxiety, Depression, GERD, HTN Surgical History: Tonsillectomy PUMP MECHANIC History: Denies all PUMP MECHANIC Hx Family History Family History: Reviewed,noncontributory to illness Social History Smoker: Cigarettes Alcohol: Denies ETOH Use Drugs: Denies Drug Use Lives In: Home Constitutional: reports: weakness; denies: chills, diaphoresis, fatigue, fever, malaise, sweats, others EENTM: denies: blurred vision, double vision, ear bleeding, ear discharge, ear drainage, ear pain, ear ringing, eye pain, eye redness, hearing loss, mouth pain, mouth swelling, nasal discharge, nose bleeding, nose congestion, nose pain, photophobia, tearing, throat pain, throat swelling, voice changes, others Respiratory: reports: shortness of breath; denies: cough, hemoptysis, orthopnea, SOB at rest, SOB with excertion, stridor, wheezing, others Cardiovascular: denies: chest pain, dizzy spells, diaphoresis, Dyspnea on exertion, edema, irregular heart beat, left arm pain, lightheadedness, palpitations, PND, syncope, others Gastrointestinal: denies: abdomen distended, abdominal pain, blood streaked bowels, constipated, diarrhea, dysphagia, difficulty swallowing, hematemesis, melena, nausea, poor appetite, poor fluid intake, rectal bleeding, rectal pain, vomiting, others Genitourinary: denies: abnormal vagina bleeding, burning, dyspareunia, dysuria, flank pain, frequency, hematuria, incontinence, pain, , vagina discharge, urgency, others Neurological: reports: others (tremors); denies: dizziness, fainting, headache, left sided numbness, left sided weakness, numbness, paresthesia, pre-existing deficit, right sided numbness, right sided weakness, seizure, speech problems, tingling, tremors, weakness Musculoskeletal: reports: others (body pain); denies: back pain, gout, joint pain, joint swelling, muscle pain, muscle stiffness, neck pain Integumetry: denies: bruises, change in color, change in hair/nails, dryness, laceration, lesions, lumps, rash, wounds, others Allergic/Immunocompromised: denies: Difficulty Healing, Frequent Infections, Hives, Itching, others Hematologic/Lymphatic: denies: anemia, blood clots, easy bleeding, easy bruising, swollen glands, others Endocrine: denies: excessive hunger, excessive sweating, excessive thirst, excessive urination, flushing, intolerance to cold, intolerance to heat, unexplained weight gain, unexplained weight loss, others Psychiatric: denies: anxiety, bipolar disorder, depression, hopeless, panic disorder, schizophrenia, sleepless, suicidal, others All Other Systems: Reviewed and Negative Physical Exam General Appearance: Moderate Distress HEENT: Normal ENT Inspection, Pharynx Normal, TMs Normal Neck: Full Range of Motion, Non-Tender, Normal, Normal Inspection Respiratory: Chest Non-Tender, Lungs Clear, No Accessory Muscle Use, No Respiratory Distress, Normal Breath Sounds Cardiovascular: No Edema, No JVD, No Murmur, No Gallop, Normal Peripheral Pulses, Regular Rate/Rhythm Breast Exam: Deferred Gastrointestinal: No Organomegaly, Non Tender, No Pulsatile Mass, Normal Bowel Sounds, Soft Genitalia: Deferred Pelvic: Deferred Rectal: Deferred Extremities: No calf tenderness, Normal capillary refill, Normal inspection, Normal range of motion, Non-tender, No pedal edema Musculoskeletal : Apperance: Normal Neurologic: Alert, No Motor Deficits, No Sensory Deficits Cerebellar Function: NOT DONE Reflexes: NOT DONE Skin: Dry, Normal Color, Warm Lymphatic: No Adenopathy Was a procedure done? Was a procedure done?: No Differential Dx Considerations may include: Anxiety Electrolyte imbalance X-Ray, Labs, Meds, VS Vital Signs Date Time Temp Pulse Resp B/P (MAP) Pulse Ox O2 Delivery O2 Flow Rate FiO2 12/03/24 11:32 79 16 98 Room Air* 0 21 12/03/24 11:24 99.4 79 20 129/77 (94) 98 99.4 12/03/24 11:24 79 20 98 Room Air 12/03/24 10:51 70 12/03/24 10:49 97.9 80 18 148/83 (104) 96 Lab Test 12/03/24 12:00 12/03/24 11:04 Range/Units Urine Color Colorless Yellow Urine Clarity Clear Clear Urine pH 6.0 5.0-9.0 Urine Specific [place] 1.005 1.001-1.035 Urine Protein Negative Negative Urine Ketones Negative Negative Urine Blood Negative Negative /uL Urine Nitrite Negative Negative Urine Bilirubin Negative Negative Urine Urobilinogen Normal Negative mg/dL Urine Leukocyte Esterase Negative Negative /uL Urine RBC None seen 0 - 4 /hpf Urine Microscopic WBC 0-5 /HPF Urine Squamous Epithelial Cells Few <5 /hpf Urine Bacteria None seen None Seen /hpf Urine Glucose Normal Normal mg/dL White Blood Count 7.9 4.4-10.8 10^3/uL Red Blood Count 4.59 4.0-5.20 10^6/uL Hemoglobin 15.2 12.2-16.2 g/dL Hematocrit 44.6 36.0-46.0 % Mean Corpuscular Volume 97.3 80.0-100.0 fL Mean Corpuscular Hemoglobin 33.2 H 28.0-32.0 pg Mean Corpuscular Hemoglobin Concent 34.1 32.0-36.0 g/dL Red Cell Distribution Width 13.6 11.8-14.3 % Platelet Count 305 140-450 10^3/uL Mean Platelet Volume 8.2 6.9-10.8 fL Neutrophils (%) (Auto) 74.5 37.0-80.0 % Lymphocytes (%) (Auto) 15.6 10.0-50.0 % Monocytes (%) (Auto) 6.6 0.0-12.0 % Eosinophils (%) (Auto) 2.8 0.0-7.0 % Basophils (%) (Auto) 0.5 0.0-2.0 % Neutrophils # (Auto) 5.9 1.6-8.6 10 ^3/uL Lymphocytes # (Auto) 1.2 0.4-5.4 10 ^3/uL Monocytes # (Auto) 0.5 0-1.3 10 ^3/uL Eosinophils # (Auto) 0.2 0-0.8 10 ^3/uL Basophils # (Auto) 0 0-0.2 10 ^3/uL Nucleated Red Blood Cells 0.0 % Sodium Level 143 136-145 mmol/L Potassium Level 4.4 3.5-5.1 mmol/L Chloride Level 109 H 98-107 mmol/L Carbon Dioxide Level 28 20-31 mmol/L Anion Gap 6 5-15 Blood Urea Nitrogen 22 9-23 mg/dL Creatinine 0.90 0.550-1.02 mg/dL Glomerular Filtration Rate Calc 68 >90 mL/min BUN/Creatinine Ratio 24.4 H 10.0-20.0 Serum Glucose 116 H 74-106 mg/dL Calcium Level 10.2 8.7-10.4 mg/dL Troponin I High Sensitivity 4 </=34 ng/L Current Medications Medications (Trade) Dose Ordered Sig/Toby Route Start Time Stop Time Status Last Admin Lorazepam (Ativan Inj) 1 mg ONCE ONCE IV 12/03/24 11:00 12/03/24 11:01 DC 12/03/24 11:34 Lorazepam (Ativan Tablet) 1 mg ONCE ONCE PO 12/03/24 13:30 12/03/24 13:31 DC 12/03/24 13:44 Patient alert. Complaining of shaking. Was given Ativan. Vitals stable. Cardiac marker within normal limits. No sign of distress. Chronic condition. No leg swelling. No shortness a breath. Able to take deep breaths. Abdomen is soft nontender. Lungs clear. EKG reviewed does not show any acute changes. Explained to the patient. Was told to follow up with her primary care physician. Was told to come back if there is any problem. Time of 1ST Reevaluation: 11:30 Reevaluation 1ST: Improved Patient Education/Counseling: Diagnosis, Treatment Family Education/Counseling: No Family Present Departure 1 Departure Time of Disposition: 11:55 Impression: Primary Impression: Anxiety disorder Qualified Codes: F41.9 - Anxiety disorder, unspecified Disposition: HOME / SELF CARE / HOMELESS Condition: Good e-Prescriptions Lorazepam (ATIVAN TABLET) 0.5 Mg Tb 1 TAB PO DAILY for 10 Days, #10 TAB Prov: WESLEY JJ MD 12/03/24 Discharged With: Self Critical Care Note Critical Care Time?: No Stability Stability form required: No Heart Score Heart Score: Heart Score Response (Comments) Value History Slightly Suspicious 0 EKG Normal 0 Age >65 2 Risk Factors 1 or 2 risk factors 1 Troponin Normal limit 0 Total 3 I personally scribed for WESLEY JJ MD ([email or web address]) on 12/03/24 at 11:13. Electronically submitted by Sandra Agustin ([email or web address]). WESLEY JJ MD Dec 03, 2024 11:13
[2024-12-03 11:24] LABS: Potassium 4.4 mmol/L (3.5-5.1); Sodium 143 mmol/L (136-145)
[2024-12-03 11:25] LABS: Anion Gap 6 (5-15); Carbon Dioxide 28 mmol/L (20-31)
[2024-12-03 11:26] LABS: Calcium 10.2 mg/dL (8.7-10.4)
[2024-12-03 11:30] LABS: BUN/Creatinine Ratio 24.4 (10.0-20.0); Blood Urea Nitrogen 22 mg/dL (9-23)
[2024-12-03 11:32] VITALS: PULSE 79; RESP 16; O2SAT 98
[2024-12-03] MEDS: LORazepam 2MG/ML-1ML VIAL IV ONE (11:34)
[2024-12-03 11:38] LABS: Chloride 109 mmol/L (98-107); Glucose 116 mg/dL (74-106)
[2024-12-03 12:09] LABS: Urine Bacteria None Seen /hpf (None Seen)
[2024-12-03 12:20] LABS: Urine Blood Negative /uL (Negative); Urine Clarity Clear (Clear); Urine Color Colorless (Yellow); Urine Protein, UAD Negative (Negative); Urine Specific Gravity 1.005 (1.001-1.035); Urine Squamous Epithelial Cell FEW /hpf (<5); Urine Urobilinogen Normal (Negative)
[2024-12-03 13:12] LABS: Basophils # (auto) 0 10 ^3/uL (0-0.2); Basophils % (auto) 0.5 % (0.0-2.0); Eosinophils # (auto) 0.2 10 ^3/uL (0-0.8); Eosinophils % (auto) 2.8 % (0.0-7.0); Hematocrit 44.6 % (36.0-46.0); Hemoglobin 15.2 g/dL (12.2-16.2); Lymphocytes # (auto) 1.2 10 ^3/uL (0.4-5.4); Lymphocytes % (auto) 15.6 % (10.0-50.0); Mean Corpuscular Hemoglobin 33.2 pg (28.0-32.0); Mean Corpuscular Hgb Conc. 34.1 g/dL (32.0-36.0); Mean Corpuscular Volume 97.3 fL (80.0-100.0); Monocytes # (auto) 0.5 10 ^3/uL (0-1.3); Monocytes % (auto) 6.6 % (0.0-12.0); Neutrophils # (auto) 5.9 10 ^3/uL (1.6-8.6); Neutrophils % (auto) 74.5 % (37.0-80.0); Platelet Count (auto) 305 10^3/uL (140-450); Red Blood Cells 4.59 10^6/uL (4.0-5.20); Red Cell Distribution Width 13.6 % (11.8-14.3); White Blood Cell 7.9 10^3/uL (4.4-10.8)
[2024-12-03] MEDS: LORazepam 0.5 MG TAB PO ONE (13:44)
[2024-12-03] MEDS ORDERED: LORA-1121 PO (14:40)
[2024-12-03 14:48] VITALS: BP 126/74; PULSE 76; RESP 14; TEMP 97.2; O2SAT 96
--- NOTE | 2024-12-04 07:10 | ECG ---
[facility] Test Date: 2024-12-03 Test Time: 10:51:48 Pat Name: JOSH GARZA Department: er Room: Gender: F Family Support Worker: gp : 1950 Requested By: WESLEY JJ Order Number: [id number] Reading MD: Ad Cintron Measurements Intervals [place] Rate: 70 P: 7 IA: 169 QRS: 15 QRSD: 86 T: 53 QT: 370 QTc: 400 Interpretive Statements Sinus rhythm Atrial premature complexes Electronically Signed On 12-05-2024 17:59:27 PST by Ad Cintron Please click the below link to view image of tracing.
== END 2024-12-03 14:55 | disposition home or self-care (01) ==
LOC: ER 10:47 → EDBD 10:47 → ER 14:51
DX: F41.9 Anxiety disorder, unspecified (principal); I10 Essential (primary) hypertension; F17.210 Nicotine dependence, cigarettes, uncomplicated; R25.1 Tremor, unspecified; K21.9 Gastro-esophageal reflux disease without esophagitis; Z79.899 Other long term (current) drug therapy; Z90.89 Acquired absence of other organs
CPT/HCPCS: 36415; 80048; 81001; 84484; 85025; 93005; 96374; 99284; J2060

== ENCOUNTER → 2024-12-08 | Outpatient (CLI) | payer OTHER ==
[2024-12-08 12:30] LABS: Basophils # (auto) 0 10 ^3/uL (0-0.2); Basophils % (auto) 0.6 % (0.0-2.0); Eosinophils # (auto) 0.2 10 ^3/uL (0-0.8); Eosinophils % (auto) 3.6 % (0.0-7.0); Hematocrit 44.9 % (36.0-46.0); Hemoglobin 14.9 g/dL (12.2-16.2); Mean Corpuscular Hemoglobin 32.3 pg (28.0-32.0); Mean Corpuscular Hgb Conc. 33.2 g/dL (32.0-36.0); Mean Corpuscular Volume 97.3 fL (80.0-100.0); Monocytes # (auto) 0.5 10 ^3/uL (0-1.3); Monocytes % (auto) 8.4 % (0.0-12.0); Neutrophils # (auto) 3.7 10 ^3/uL (1.6-8.6); Neutrophils % (auto) 68.4 % (37.0-80.0); Platelet Count (auto) 270 10^3/uL (140-450); Red Blood Cells 4.61 10^6/uL (4.0-5.20); Red Cell Distribution Width 13.3 % (11.8-14.3); White Blood Cell 5.4 10^3/uL (4.4-10.8)
[2024-12-08 12:52] LABS: Alanine Aminotransferase 18 U/L (7-40); Alkaline Phosphatase 102 U/L (46-116); Amylase 57 U/L (30-118); Anion Gap 9 (5-15); Aspartate Aminotransferase 18 U/L (13-40); BUN/Creatinine Ratio 23.2 (10.0-20.0); Calcium 10.3 mg/dL (8.7-10.4); Carbon Dioxide 27 mmol/L (20-31); Chloride 105 mmol/L (98-107); Potassium 4.4 mmol/L (3.5-5.1); Sodium 141 mmol/L (136-145); Total Protein 7.9 g/dL (5.7-8.2)
[2024-12-08 12:56] LABS: Albumin 5.2 g/dL (3.2-4.8); Bilirubin, Total 1.3 mg/dL (0.2-1.0); Blood Urea Nitrogen 23 mg/dL (9-23); Glucose 109 mg/dL (74-106)
[2024-12-08 12:58] LABS: Free T3 3.26 pg/mL (2.3-4.2); Free T4 (Free Thyroxine) 1.13 ng/dL (0.89-1.76); T3 Total 0.94 ng/mL (0.60-1.81)
== END | disposition home or self-care (01) ==
LOC: LAB 12:00
PROVIDERS: ATTEND Internal Medicine
DX: I10 Essential (primary) hypertension (principal); M79.7 Fibromyalgia; R10.9 Unspecified abdominal pain; Z00.00 Encounter for general adult medical examination without abnormal findings
CPT/HCPCS: 36415; 80053; 82150; 82533; 84439; 84443; 84480; 84481; 85025

== ENCOUNTER → 2024-12-24 | Outpatient (CLI) | payer OTHER ==
[~2024-12-24] MED LIST changes: +ACET500T58 PO; +CHOL400C15 PO; +CYAN500T39 PO; +DULO20CA PO; +HYDR-5028 PO; +LOSA-533 PO; +MAGN400T40 PO; +OMEP20TA PO; +PANT40TA2 PO; +PROC10TA6 PO
[2024-12-28 15:07] LABS: Cortisol Free ug/24hr Ur 32 ug/24 hr (6-42); Cortisol Free ug/L Ur 17 ug/L (Undefined)
== END | disposition home or self-care (01) ==
LOC: LAB 07:42
PROVIDERS: ATTEND Internal Medicine
DX: R94.7 Abnormal results of other endocrine function studies (principal)
CPT/HCPCS: 82530; 82533

== ENCOUNTER 2025-01-02 07:21 | Day surgery (SDC) | payer OTHER ==
[2024-12-28 14:01] LABS: Basophils # (auto) 0 10 ^3/uL (0-0.2); Basophils % (auto) 0.3 % (0.0-2.0); Eosinophils # (auto) 0.2 10 ^3/uL (0-0.8); Hematocrit 43.4 % (36.0-46.0); Hemoglobin 14.7 g/dL (12.2-16.2); Lymphocytes # (auto) 1.7 10 ^3/uL (0.4-5.4); Lymphocytes % (auto) 18.8 % (10.0-50.0); Mean Corpuscular Hemoglobin 32.7 pg (28.0-32.0); Mean Corpuscular Hgb Conc. 33.9 g/dL (32.0-36.0); Mean Corpuscular Volume 96.4 fL (80.0-100.0); Monocytes # (auto) 0.6 10 ^3/uL (0-1.3); Monocytes % (auto) 6.9 % (0.0-12.0); Neutrophils # (auto) 6.4 10 ^3/uL (1.6-8.6); Platelet Count (auto) 272 10^3/uL (140-450); Red Cell Distribution Width 13.3 % (11.8-14.3); White Blood Cell 8.9 10^3/uL (4.4-10.8)
[2024-12-28 14:23] LABS: INR 0.97 (0.9-1.15); Partial Thromboplastin Time 25.9 SEC (24.5-34.5); Prothrombin Time 10.3 sec (9.3-11.8)
[2024-12-28 14:27] LABS: Alanine Aminotransferase 17 U/L (7-40); Albumin 5.3 g/dL (3.2-4.8); Alkaline Phosphatase 92 U/L (46-116); Anion Gap 7 (5-15); Aspartate Aminotransferase 14 U/L (13-40); BUN/Creatinine Ratio 27.2 (10.0-20.0); Bilirubin, Total 0.9 mg/dL (0.2-1.0); Blood Urea Nitrogen 22 mg/dL (9-23); Calcium 10.2 mg/dL (8.7-10.4); Carbon Dioxide 26 mmol/L (20-31); Chloride 109 mmol/L (98-107); Glucose 94 mg/dL (74-106); Potassium 4.2 mmol/L (3.5-5.1); Sodium 142 mmol/L (136-145); Total Protein 8.1 g/dL (5.7-8.2)
[~2025-01-02] VITALS: Ht 154.9 cm; Wt 54.4 kg
[~2025-01-02 07:21] MED LIST changes: -ACE3T PO; -BACL5TAB2 PO; -DULO1CAP5 PO; -FAMO-68 PO; -IBU600T PO; -LOSA-535 PO; -NICO14DI9 TD; -OMEP20TA PO; -ONDA-144 PO
[2025-01-02] MEDS ORDERED: diphenhdrAMINE HCL 50 MG/1 ML VL ONE (09:47)
[2025-01-02 09:56] VITALS: PULSE 61; RESP 15; O2SAT 94
[2025-01-02] MEDS: MIDAZOLAM HCL 2MG/2ML 2ml VIAL (1mg/ml) ONE (10:02)
[2025-01-02] MEDS: fentaNYL CITRATE 100 MCG/2 ML VL ONE (10:02)
--- NOTE | 2025-01-02 10:14 | DVHNC2 ---
Procedure - DATE OF PROCEDURE:01/02/2025 PROCEDURE PERFORMED BY: LILIA GONZALEZ MD REFERRING PROVIDER: DR JAMESON PROCEDURE PERFORMED: 1. ESOPHAGOGASTRODUODENOSCOPY WITH MODERATE SEDATION 2. ESOPHAGOGASTRODUODENOSCOPY WITH BIOPSY PRE-PROCEDURE DIAGNOSIS: 1. GERD REFRACTORY TO TREATMENT 2. NAUSEA POSTPROCEDURE DIAGNOSIS: 1. MODERATE EROSIVE DUODENITIS 2. MILD EROSIVE GASTRITIS 3. MILD EROSIVE ESOPHAGITIS INDICATIONS FOR PROCEDURE: The patient is a 74-year-old female with daily nausea and GERD refractory to treatment. She presents for outpatient endoscopy. MEDICATIONS USED:4 mg of Versed and 50 mcg o IV were given in incremental doses DETAILS OF THE PROCEDURE: Informed consent was obtained after risks, benefits, and alternatives were discussed at length with the patient. The patient gave consent to the procedure as well as the medication used for sedation. The patient was placed in left lateral decubitus position. An Olympus endoscope was inserted into the oropharynx and advanced into the esophagus, then into the stomach, then into the duodenal bulb and duodenum. The duodenal bulb and duodenum showed moderate erosive duodenitis. The scope was then withdrawn. The patient had mild gastritis in the body and antrum. Biopsies were taken. Retroflexion showed no abnormalities. The scope was then withdrawn. The esophagus showed mild erosive esophagitis, the Z-line was at 37 cm. The scope was then withdrawn and the procedure completed. The patient tolerated the procedure well. IMPRESSION: 1. Mild erosive esophagitis and mild erosive gastritis 2. Moderate erosive duodenitis RECOMMENDATIONS: 1. Follow up with biopsy results 2. Anti-reflux precautions 3. Follow-up in GI clinic 4. Avoid aspirin, NSAIDs, spicy food, caffeine, tomatoes, citrus. I WOULD LIKE TO THANK DR. JAMESON FOR THIS REFERRAL LILIA GONZALEZ MD Jan 02, 2025 10:14
[2025-01-02 10:15] VITALS: PULSE 72; RESP 13; TEMP 97.8; O2SAT 95
[2025-01-02 10:25] VITALS: PULSE 62; RESP 13; O2SAT 98
[2025-01-02 10:35] VITALS: PULSE 65; RESP 12; O2SAT 100
[2025-01-02 11:00] VITALS: BP 124/62; PULSE 62; RESP 15; O2SAT 95
== END 2025-01-02 11:10 | disposition home or self-care (01) ==
LOC: GI 07:21
PROVIDERS: ATTEND Specialist
DX: K21.00 Gastro-esophageal reflux disease with esophagitis, without bleeding (principal); K29.50 Unspecified chronic gastritis without bleeding; K29.80 Duodenitis without bleeding; I10 Essential (primary) hypertension; F32.A Depression, unspecified; F41.9 Anxiety disorder, unspecified; F17.210 Nicotine dependence, cigarettes, uncomplicated; Z79.899 Other long term (current) drug therapy; Z98.890 Other specified postprocedural states; Z80.0 Family history of malignant neoplasm of digestive organs
CPT/HCPCS: 36415; 43239; 80053; 85025; 85610; 85730; 88305; 88312; 88342; J2250; J3010; J7030

== ENCOUNTER → 2025-02-10 | Outpatient (CLI) | payer OTHER | END | disposition home or self-care (01) | LOC: LAB 12:12 | PROVIDERS: ATTEND Internal Medicine | DX: Z13.21 Encounter for screening for nutritional disorder (principal); Z13.29 Encounter for screening for other suspected endocrine disorder; I70.90 Unspecified atherosclerosis; Z79.899 Other long term (current) drug therapy | CPT/HCPCS: 36415; 82306; 82607; 84443 ==